=== PATIENT | female | born 1960 | race Caucasian/White ===

== ENCOUNTER 2018-09-22 22:42 | Emergency (ER) | payer BC ==
[2018-09-22 22:50] VITALS: BP 129/89; PULSE 84; TEMP 98.3; BMI 20.9
--- NOTE | 2018-09-22 23:03 | PDOC ---
History of Present Illness - General History Source: Patient Exam Limitations: No Limitations - History of Present Illness Initial Comments: 09/22/18 23:15 The patient is a 58 year old female, with no significant PMH who presents to the emergency department with a laceration the the left thigh earlier today. Patient states she was washing her dishes when a dish slipped and broke and then she fell on top of the dish lacerating her upper left thigh. Patient denies any head trauma or any other injuries. The patient denies chest pain, shortness of breath, headache and dizziness. Denies fever, chills, nausea, vomit, diarrhea and constipation. Denies dysuria, frequency, urgency and hematuria. Allergies: NKA Past surgical history: None reported. Social history: No reported alcohol, drug or cigarette use. <Xenia Ding - Last Filed: 09/22/18 23:32> <Bri Mancuso - Last Filed: 09/23/18 03:24> - General Chief Complaint: Injury Stated Complaint: LACERATION TO LEFT UPPER THIGH Time Seen by Provider: 09/22/18 22:56 Past History <Xenia Ding - Last Filed: 09/22/18 23:32> - Past Medical History COPD: No - Surgical History Appendectomy: Yes - Immunization History Td Vaccination: No Immunization Up to Date: Yes - Suicide/Smoking/Psychosocial Hx Smoking History: Never smoked Have you smoked in the past 12 months: No Number of Cigarettes Smoked Daily: 0 Information on smoking cessation initiated: No Hx Alcohol Use: No Drug/Substance Use Hx: No Substance Use Type: None <Bri Mancuso - Last Filed: 09/23/18 03:24> - Past Medical History Allergies/Adverse Reactions: Allergies Allergy/AdvReac Type Severity Reaction Status Date / Time Penicillins Allergy Mild Verified 09/22/18 22:44 Home Medications: Ambulatory Orders No Home Medications 0 dose .ROUTE UTDICT 10/18/13 Review of Systems - Review of Systems Able to Perform ROS?: Yes Comments:: 09/22/18 23:15 ADULT ROS GENERAL/CONSTITUTIONAL: No fever or chills. No weakness. HEAD, EYES, EARS, NOSE AND THROAT: No change in vision. No ear pain or discharge. No sore throat. CARDIOVASCULAR: No chest pain or shortness of breath. RESPIRATORY: No cough, wheezing, or hemoptysis. GASTROINTESTINAL: No nausea, vomiting, diarrhea or constipation. GENITOURINARY: No dysuria, frequency, or change in urination. MUSCULOSKELETAL: No joint or muscle swelling or pain. No neck or back pain. SKIN: (+) Laceration to the left thigh. NEUROLOGIC: No headache, vertigo, loss of consciousness, or change in strength/ sensation. ENDOCRINE: No increased thirst. No abnormal weight change. HEMATOLOGIC/LYMPHATIC: No anemia, easy bleeding, or history of blood clots. ALLERGIC/IMMUNOLOGIC: No hives or skin allergy. <Xenia Ding - Last Filed: 09/22/18 23:32> *Physical Exam - Vital Signs Last Vital Signs Temp Pulse Resp BP Pulse Ox 98.3 F 84 17 129/89 100 09/22/18 22:46 09/22/18 22:46 09/22/18 22:46 09/22/18 22:46 09/22/18 22:46 - Physical Exam Comments: 09/22/18 23:15 ADULT EXAM GENERAL: Awake, alert, and fully oriented, in no acute distress HEAD: No signs of trauma EYES: PERRLA, EOMI, sclera anicteric, conjunctiva clear ENT: Auricles normal inspection, hearing grossly normal, nares patent, oropharynx clear without exudates. Moist mucosa NECK: Normal ROM, supple, no lymphadenopathy, JVD, or masses LUNGS: Breath sounds equal, clear to auscultation bilaterally. No wheezes, and no crackles HEART: Regular rate and rhythm, normal S1 and S2, no murmurs, rubs or gallops ABDOMEN: Soft, nontender, normoactive bowel sounds. No guarding, no rebound. No masses EXTREMITIES: Normal range of motion, no edema. No clubbing or cyanosis. No cords, erythema, or tenderness NEUROLOGICAL: Cranial nerves II through XII grossly intact. Normal speech, normal gait SKIN: Warm, Dry, normal turgor. (+) 5cm laceration to the posterior aspect of the left proximal thigh; full thickness. <Xenia Ding - Last Filed: 09/22/18 23:32> - Vital Signs Last Vital Signs Temp Pulse Resp BP Pulse Ox 98.3 F 84 17 129/89 100 09/22/18 22:46 09/22/18 22:46 09/22/18 22:46 09/22/18 22:46 09/22/18 22:46 <Bri Mancuso - Last Filed: 09/23/18 03:24> Procedures - Laceration/Wound Repair Left Upper Posterior Thigh Wound Length: 2.6 to 5.0 cm Wound Explored: clean Wound's Depth, Shape: linear Irrigated w/ Saline: Yes Betadine Prep: No (chlorhexidine/ethanol) Anesthesia: 1% Lidocaine Amount of Anesthetic (ccs): 3 Wound Debrided: none Wound Repaired With: Sutures Suture Size/Type: 4:0 Number of Sutures: 7 Sterile Dressing Applied: Yes Splint Applied: No Sling Applied: No Progress: Area of wound cleansed with chlorhexidine/ethanol solution and sterilely draped. 3 ml of 1% lidocaine infiltrated locally for anesthesia. Wound irrigated using 30 mL of sterile normal saline. No evidence of foreign body or deep tissue injury. Wound edges closely apposed and wound closed with 7 interrupted sutures of 4-0 nylon. Bacitracin and 2 x 2 sterile gauze applied followed by Tegaderm dressing. Patient tolerated procedure well. <Bri Mancuso - Last Filed: 09/23/18 03:24> Medical Decision Making - Medical Decision Making Documentation has been prepared under my direction and personally reviewed by me in its entirety. I attest that this documented accurately reflects all work, treatment, procedures and medical decision making performed by me. As noted above, this 58-year-old woman sustained laceration of the posterior proximal left thigh when she fell on broken plate in her kitchen. No other injury sustained. Laceration was clean edged, horizontal and linear in the proximal posterior left thigh. Laceration was full-thickness but through fat layer only without evidence of muscle or vascular injury. Repair as noted above. Patient discharged with instructions for wound care over the next few days; she should return or see her doctor if there is any evidence of infection. Sutures should be removed on Monday, October 01. <Bri Mancuso - Last Filed: 09/23/18 03:24> *DC/Admit/Observation/Transfer - Attestations Scribe Attestion: 09/22/18 23:16 Documentation prepared by Xenia Ding, acting as medical policy specialist for Bri Mancuso MD. <Xenia Ding - Last Filed: 09/22/18 23:32> <Bri Mancuso - Last Filed: 09/23/18 03:24> Diagnosis at time of Disposition: Thigh laceration Qualifiers: Encounter type: initial encounter Laterality: left Qualified Code(s): S71.112A - Laceration without foreign body, left thigh, initial encounter - Discharge Dispostion Disposition: HOME Condition at time of disposition: Stable - Patient Instructions Printed Discharge Instructions: How to Care for a Laceration After Repair Additional Instructions: keep wound as dry as possible for 2 days after 2 days, keep wound open to air at night Bacitracin to wound daily after 2 days Return here or see your doctor if wound is red,swollen, painful Have sutures removed on Monday, 10/01
[2018-09-23] MEDS ORDERED: DIPHTH,PERTUSS(ACELL),TET 0.5 ML DISP.SYRIN IM ONE (00:32)
== END 2018-09-23 00:42 | disposition home or self-care (01) ==
LOC: FER 22:42
PROC: 0HQJXZZ Repair Left Upper Leg Skin, External Approach (ICD-10-PCS; principal; 2018-09-22)
PROC: 3E0234Z Introduction of Serum, Toxoid and Vaccine into Muscle, Percutaneous Approach (ICD-10-PCS; 2018-09-22)
DX: S71.112A Laceration without foreign body, left thigh, initial encounter (principal); W01.110A Fall on same level from slipping, tripping and stumbling with subsequent striking against sharp glass, initial encounter; Y93.G1 Activity, food preparation and clean up; Y92.000 Kitchen of unspecified non-institutional (private) residence as the place of occurrence of the external cause; Z88.0 Allergy status to penicillin
CPT/HCPCS: 90715; 99281-25

== ENCOUNTER 2022-05-30 10:18 | Day surgery (SDC) | payer BC ==
[2022-05-26 11:33] VITALS: BMI 20.7
[2022-05-30] MEDS ORDERED: PROPOFOL 20 ML ONE ×3 (11:13)
[2022-05-30 14:21] VITALS: TEMP 98
[2022-05-30 14:25] VITALS: RESP 16
[2022-05-30 14:28] VITALS: BP 105/64; PULSE 77
== END 2022-05-30 12:55 | disposition home or self-care (01) ==
LOC: FASU-ENDO 10:18
PROVIDERS: ATTEND Internal Medicine Gastroenterology
PROC: 0DJD8ZZ Inspection of Lower Intestinal Tract, Via Natural or Artificial Opening Endoscopic (ICD-10-PCS; principal; 2022-05-30 11:50)
DX: Z12.11 Encounter for screening for malignant neoplasm of colon (principal); K57.30 Diverticulosis of large intestine without perforation or abscess without bleeding; K63.89 Other specified diseases of intestine